=== PATIENT | male | born 1960 | race Caucasian/White ===

== ENCOUNTER → 2016-12-20 | Outpatient (CLI) | payer OTHER ==
--- NOTE | 2016-12-20 11:48 | DIAGNOSTIC IMAGING REPORT ---
PROCEDURE: CT ABDOMEN WITHOUT CONTRAST INDICATION: Left upper abdominal pain. TECHNIQUE: Noncontrast axial images of the abdomen and pelvis with sagittal and coronal reformations. COMPARISON: None. FINDINGS: Gallbladder, liver, spleen, pancreas, and aorta are normal. There is a 1.4 cm low density lesion in the left kidney most likely representing a renal cyst (8 HU). Lung bases are normal. Osseous structures appear normal IMPRESSION: 1. There is 1.5 cm left renal low density lesion most likely representing a cyst. 2. Otherwise negative CT abdomen. All CT scans at this facility use dose modulation, iterative reconstruction, and/or weight-based dosing when appropriate to reduce radiation dose to as low as reasonably achievable.
== END ==
LOC: XR SRH 11:21
DX: R10.9 Unspecified abdominal pain (principal); R93.5 Abnormal findings on diagnostic imaging of other abdominal regions, including retroperitoneum